=== PATIENT | female | born 1985 | race African-American/Black ===

== ENCOUNTER 2017-12-13 10:25 | Emergency (ER) | payer SELFPAY ==
[~2017-12-13] VITALS: Ht 175.3 cm; Wt 68.0 kg
[~2017-12-13 10:25] MED LIST: PROV10TA PO; ZOFR4TAB3 SL
[2017-12-13 10:28] VITALS: BP 122/56; PULSE 98; RESP 16; TEMP 98.2; O2SAT 98
[2017-12-13 12:30] VITALS: BP 111/70; PULSE 81; RESP 19; O2SAT 100
[2017-12-13] MEDS ORDERED: NAPR500T2 PO (12:55)
[2017-12-13] MEDS ORDERED: PROM6.256 PO (12:55)
--- NOTE | 2017-12-13 12:55 | PD ---
HPI Chief Complaint: Cold / Flu Symptoms Time Seen by Provider: 12:45 Travel History International Travel<30 days: No Contact w/Intl Traveler<30days: No History of Present Illness HPI This is a 32-year-old female who presents to the emergency department with 1 week of cough, constant, worse in the evenings, productive with some green sputum associated with a sore throat. She comes in because she is not getting any better and she has noticed more sputum production. She denies any fevers or chills. She does not smoke cigarettes. PFSH Past Medical History Anemia: Yes Diminished Hearing: No Influenza Vaccination: No ?: Not LMP: 12/10/17 Menopausal: No : 3 Para: 3 Miscarriage: 0 : 0 Tubal Ligation: Yes Past Surgical History Appendectomy: Yes Section: Yes Gynecologic Surgery: Yes (2 ) Social History Alcohol Use: No Tobacco Use: No Substance Use: No Allergies-Medications (Allergen,Severity, Reaction): Coded Allergies: metronidazole (Unverified Allergy, Severe, Hives, 12/13/17) Reported Meds & Prescriptions Reported Meds & Active Scripts Active Zofran Odt (Ondansetron Odt) 4 Mg Tab 4 Mg SL Q6HR PRN Provera (Medroxyprogesterone Acetate) 10 Mg Tab 10 Mg PO DAILY Start day 16 Review of Systems Except as stated in HPI: all other systems reviewed are Neg Physical Exam Narrative GENERAL:Well appearing, no acute distress SKIN: Focused skin assessment warm and dry. HEAD: Atraumatic. Normocephalic. EYES: Pupils equal and round. No injection or drainage. ENT: Moist mucous membranes. Mild posterior pharyngeal erythema with no exudates and no asymmetry NECK: No cervical lymphadenopathy. CARDIOVASCULAR: Regular rate and rhythm. No murmur appreciated. RESPIRATORY: Clear to auscultation. Breath sounds equal bilaterally. GASTROINTESTINAL: Abdomen soft, non-tender, nondistended. MUSCULOSKELETAL: No obvious deformities. NEUROLOGICAL: Awake and alert. No obvious cranial nerve deficits. Moving all extremities. PSYCHIATRIC: Appropriate mood and affect; insight and judgment normal. Data Data Last Documented VS Vital Signs Date Time Temp Pulse Resp B/P (MAP) Pulse Ox O2 Delivery O2 Flow Rate FiO2 12/13/17 12:30 81 19 111/70 (84) 100 Room Air 12/13/17 10:28 98.2 Orders Orders Influenzae A/B Antigen (12/13/17 11:10) Group A Rapid Strep Screen (12/13/17 11:12) Strep Culture (Group A) (12/13/17 11:17) MDM Medical Decision Making Medical Screen Exam Complete: Yes Emergency Medical Condition: Yes Interpretation(s) Afebrile, tachycardic, normotensive Rapid strep is negative Influenza negative Differential Diagnosis Viral syndrome, bronchitis,, influenza, strep pharyngitis Narrative Course This is a 32-year-old female who presents to the emergency department with sore throat and cough. She is well-appearing with no abnormal vital signs. I suspect she has a viral bronchitis. Patient will be given cough suppressant and anti-inflammatories. I think she can be discharged home. Diagnosis Primary Impression: Viral bronchitis Patient Instructions: General Instructions Additional Instructions: If you develop severe chest pain, shortness of breath, sweating, lightheadedness , dizziness or difficulty breathing return to the emergency department immediately. Followup with your primary care physician in 2-3 days if your symptoms are not resolved. Med/Other Pt SpecificInfo: Prescription(s) given Scripts Naproxen (Naproxen) 500 Mg Tab 500 MG PO BID Y for PAIN SCALE 4 TO 10, #20 TAB 0 Refills Prov: Helen Lucio MD 12/13/17 Promethazine-Codeine Liq (Promethazine-Codeine Liq) 6.25-10 Mg/5 Ml Syrp 5-10 ML PO Q6H Y for COUGH AND/OR COLD SYMPTOMS, #60 ML 0 Refills Prov: Helen Lucio MD 12/13/17 Disposition: 01 DISCHARGE HOME Condition: Stable Helen Lucio MD Dec 13, 2017 12:55
[2017-12-13 13:09] VITALS: BP 111/70
== END 2017-12-13 13:09 | disposition home or self-care (01) ==
LOC: NEPD 10:25
DX: J20.8 Acute bronchitis due to other specified organisms (principal)
CPT/HCPCS: 87081; 87804; 87880; 99283